=== PATIENT | female | born 1965 | race Asian ===

== ENCOUNTER 2022-06-07 16:15 | Outpatient (RCR) | payer OTHER, SELFPAY | END 2022-06-07 17:14 | disposition home or self-care (01) | PROVIDERS: Visit Provider Physician Assistant Surgical | DX: S82.143A Displaced bicondylar fracture of unspecified tibia, initial encounter for closed fracture (principal); Z51.89 Encounter for other specified aftercare | CPT/HCPCS: 97110; 97116; 97140; 97162 ==